=== PATIENT | male | born 1980 | race Asian ===

== ENCOUNTER 2019-02-16 14:54 | Inpatient (IN) | payer OTHER ==
[~2019-02-16] VITALS: Ht 188 cm; Wt 197.0 kg
--- NOTE | 2019-02-16 15:02 | NUR ---
ED Nurse Note: Pt was reported as missing person 2 wks ago and was found by IDT Team that pt is wandering around in the area. cargo service supervisor Satish Martines came to er with the pt, tristin and robert christensen #[id number]. Pt is here for medical claerance.
[2019-02-16 15:25] VITALS: BP 150/89
[2019-02-16 16:06] LABS: ANION GAP 10 mmol/L (5-15); BLOOD UREA NITROGEN 10 mg/dL (7-18); CALCIUM 9.8 MG/DL (8.5-10.1); CARBON DIOXIDE 28 MMOL/L (21-32); CHLORIDE 103 MMOL/L (98-107); SODIUM 140 MMOL/L (136-145)
[2019-02-16 16:09] LABS: BASOPHILS % (AUTO) 0.9 % (0.0-2.0); EOSINOPHILS % (AUTO) 4.5 % (0.0-3.0); HEMATOCRIT 45.2 % (42.0-52.0); LYMPHOCYTES % (AUTO) 19.2 % (20.0-45.0); MEAN CORPUSCULAR VOLUME 92 FL (80-99); MONOCYTES % (AUTO) 7.5 % (1.0-10.0); PLATELET COUNT 333 K/UL (150-450); RED BLOOD COUNT 4.93 M/UL (4.70-6.10); RED CELL DISTRIBUTION WIDTH 10.5 % (11.6-14.8); WHITE BLOOD COUNT 13.4 K/UL (4.8-10.8)
[2019-02-16 16:16] LABS: ALANINE AMINOTRANSFERASE 163 U/L (12-78); ALBUMIN 3.7 G/DL (3.4-5.0); ALBUMIN/GLOBULIN RATIO 0.7 (1.0-2.7); ALKALINE PHOSPHATASE 102 U/L (46-116); ASPARTATE AMINO TRANSFERASE 115 U/L (15-37); BILIRUBIN,TOTAL 2.5 MG/DL (0.2-1.0)
[2019-02-16 16:18] LABS: BILIRUBIN,DIRECT 0.4 MG/DL (0.0-0.3)
[2019-02-16] MEDS ORDERED: NS w/KCl 40mEq 1,000 ML IV SCH (16:45)
--- NOTE | 2019-02-16 17:05 | NUR ---
ED Nurse Note: ivf started per ermd ordered. will continue to monitor. pt is in room, asleep, easily arousable.
--- NOTE | 2019-02-16 17:38 | NUR ---
ED Nurse Note: pt is admitted, report given to claudia garcia.
--- NOTE | 2019-02-16 17:58 | Emergency Room Report ---
History of Present Illness General Chief Complaint: General Complaint Source: Patient, EMS, Law Enforcement Present Illness HPI 38-year-old male presents ED for evaluation. Brought in by EMS and [employer]. Was found wandering the streets. Bystanders called 911. Patient has been missing from his residential for the last 10 days. Director of home stated that patient needs to be brought to hospital for medical clearance and evaluation. Patient states he feels okay. History of schizophrenia. Has not been taking his medications for the last 10 days. Denies SI or HI. Denies hearing voices. No other aggravating relieving factors. Denies any other associated symptoms Allergies: Coded Allergies: No Known Allergies (Unverified , 02/16/19) Patient History Past Medical History: psych hx Past Surgical History: none Pertinent Family History: none Social History: Denies: smoking, alcohol use, drug use Immunizations: UTD Reviewed Nursing Documentation: PMH: Agreed; PSxH: Agreed Review of Systems All Other Systems: negative except mentioned in HPI Physical Exam Vital Signs Date Time Temp Pulse Resp B/P (MAP) Pulse Ox O2 Delivery O2 Flow Rate FiO2 02/16/19 15:00 99.9 71 19 150/89 (109) 97 Room Air Sp02 EP Interpretation: reviewed, normal General Appearance: no apparent distress, alert, GCS 15, non-toxic, obese Head: normocephalic, atraumatic Eyes: bilateral eye normal inspection, bilateral eye PERRL ENT: hearing grossly normal, normal pharynx, no angioedema, normal voice Neck: full range of motion, supple/symm/no masses Respiratory: chest non-tender, lungs clear, normal breath sounds, speaking full sentences Cardiovascular #1: regular rate, rhythm, no edema Cardiovascular #2: 2+ carotid (R), 2+ carotid (L), 2+ radial (R), 2+ radial (L) , 2+ dorsalis pedis (R), 2+ dorsalis pedis (L) Gastrointestinal: normal bowel sounds, non tender, soft, non-distended, no guarding, no rebound Rectal: deferred Genitourinary: normal inspection, no CVA tenderness Musculoskeletal: back normal, gait/station normal, normal range of motion, non- tender Neurologic: alert, oriented x3, responsive, motor strength/tone normal, sensory intact, speech normal Psychiatric: judgement/insight normal, memory normal, mood/affect normal, no suicidal/homicidal ideation Reflexes: 3+ bicep (R), 3+ bicep (L), 3+ tricep (R), 3+ tricep (L), 3+ knee (R) , 3+ knee (L) Lymphatic: no adenopathy Medical Decision Making Diagnostic Impression: Primary Impression: Schizophrenia Qualified Codes: F20.9 - Schizophrenia, unspecified Additional Impressions: Elevated LFTs Hypokalemia ER Course 38-year-old male referred to ED for medical clearance. Missing from his residential for 10 days differentialdehydration, psychosis, EtOH Placed on stretcher. After initial history and physical I ordered labs, IV fluids labs No leukocytosis, hemoglobin/hematocrit stable, potassium 3.0, LFTs elevated. K Repleted. Patient denies any abdominal pain. No overt signs of jaundice. Due to morbid body habitus patient would not be able to get a CT. patient has no abdominal pain director of facility stated that patient would not be accepted until he was cleared medically and evaluated by a psychiatrist. No indication for transfer to psychiatric team. Will be admitted to Dr. Venegas service. psychiatry consult will be obtained. Diagnosisschizophrenia, elevated LFTs, hypokalemia admitted to floor in serious condition Labs Test 02/16/19 15:10 White Blood Count 13.4 K/UL (4.8-10.8) Red Blood Count 4.93 M/UL (4.70-6.10) Hemoglobin 16.0 G/DL (14.2-18.0) Hematocrit 45.2 % (42.0-52.0) Mean Corpuscular Volume 92 FL (80-99) Mean Corpuscular Hemoglobin 32.5 PG (27.0-31.0) Mean Corpuscular Hemoglobin Concent 35.4 G/DL (32.0-36.0) Red Cell Distribution Width 10.5 % (11.6-14.8) Platelet Count 333 K/UL (150-450) Mean Platelet Volume 6.5 FL (6.5-10.1) Neutrophils (%) (Auto) 68.0 % (45.0-75.0) Lymphocytes (%) (Auto) 19.2 % (20.0-45.0) Monocytes (%) (Auto) 7.5 % (1.0-10.0) Eosinophils (%) (Auto) 4.5 % (0.0-3.0) Basophils (%) (Auto) 0.9 % (0.0-2.0) Sodium Level 140 MMOL/L (136-145) Potassium Level 3.0 MMOL/L (3.5-5.1) Chloride Level 103 MMOL/L (98-107) Carbon Dioxide Level 28 MMOL/L (21-32) Anion Gap 10 mmol/L (5-15) Blood Urea Nitrogen 10 mg/dL (7-18) Creatinine 1.0 MG/DL (0.55-1.30) Estimat Glomerular Filtration Rate > 60 mL/min (>60) Glucose Level 114 MG/DL (74-106) Calcium Level 9.8 MG/DL (8.5-10.1) Total Bilirubin 2.5 MG/DL (0.2-1.0) Direct Bilirubin 0.4 MG/DL (0.0-0.3) Aspartate Amino Transf (AST/SGOT) 115 U/L (15-37) Alanine Aminotransferase (ALT/SGPT) 163 U/L (12-78) Alkaline Phosphatase 102 U/L (46-116) Total Protein 8.9 G/DL (6.4-8.2) Albumin 3.7 G/DL (3.4-5.0) Globulin 5.2 g/dL Albumin/Globulin Ratio 0.7 (1.0-2.7) Salicylates Level < 0.2 ug/mL (2.8-20) Urine Opiates Screen Negative (NEGATIVE) Acetaminophen Level < 2 MCG/ML (10-30) Urine Barbiturates Screen Negative (NEGATIVE) Phencyclidine (PCP) Screen Negative (NEGATIVE) Urine Amphetamines Screen Negative (NEGATIVE) Urine Benzodiazepines Screen Negative (NEGATIVE) Urine Cocaine Screen Negative (NEGATIVE) Urine Marijuana (THC) Screen Negative (NEGATIVE) Serum Alcohol < 3 mg/dL Last Vital Signs Date Time Temp Pulse Resp B/P (MAP) Pulse Ox O2 Delivery O2 Flow Rate FiO2 02/16/19 15:25 71 19 Room Air 02/16/19 15:25 99.9 150/89 97 Status: improved Disposition: ADMITTED INPATIENT Condition: Serious Referrals: NON PHYSICIAN (PCP) Ziyad Watts MD Feb 16, 2019 17:58
[2019-02-16] MEDS ORDERED: TRAZODONE HCL150 MG ORAL (18:01)
[2019-02-16] MEDS ORDERED: BENZTROPINE ME0.5 MG PO (18:01)
[2019-02-16] MEDS ORDERED: OXYBUTYNIN CHLOR5 GM MC (18:01)
[2019-02-16] MEDS ORDERED: NIZORAL 2% C1 APPLIC TOPIC (18:01)
[2019-02-16] MEDS ORDERED: NYSTATIN15 G2 TP (18:01)
[2019-02-16] MEDS ORDERED: ABILIFY10 MG ORAL (18:01)
[2019-02-16 18:05] VITALS: BP 135/88
--- NOTE | 2019-02-16 18:05 | NUR ---
ED Nurse Note: pt was transfered to 320 1 with stable vs, all belongings endorsed to claudia garcia.
[2019-02-16 18:23] VITALS: BP 121/68
--- NOTE | 2019-02-16 18:48 | NUR ---
NURSE NOTES: Received pt from ED @1820, report given by Marilyn GRIFFITH. Pt awake, A/O x 2, calm, cooperative, homeless, overweight. VS stable, denies pain, no SOB noted. Redness abd folds/ groin area, scratches on gen body, closed blister on right great toe. IVF infusing. k replaced per order. tolerating diet. pt dont remember home meds. belongings with pt. Swabs pending. received orders. bed in low position, bed alarm on. call light within reach. will continue to monitor.
--- NOTE | 2019-02-16 19:00 | NUR ---
NURSE NOTES:NURSE NOTES Patient received from Merle Lamb Patient denies any pain at this time . nos/s of distress noted . LAC G# 20 ns at 100 cc/ hr infusing well . safety / fall precaution . Call lihnt within reach . Bed in low position . will continue to monitor .
[2019-02-16 20:00] VITALS: BP 128/68
--- NOTE | 2019-02-16 20:45 | NUR ---
NURSE NOTES:Patient Assisted and take shower tonight . And assisted back to bed . safety and fall precautions . Patient instructed to uses call light when needed . Patient verbalized his understanding bed in low position . bed alarm on will continue to monitor.
[2019-02-16] MEDS: TraZODone 100mg tab ORAL SCH (21:00)
--- NOTE | 2019-02-16 21:00 | NUR ---
NURSE NOTES:DR. Quick seen patient. with new orders wound care evaluation protocol right great toe with blister and no open wound . Redness abdominal fold and groin area skin intact. endorsed to incoming nurse .will continue to monitor.
--- NOTE | 2019-02-16 21:00 | NUR ---
NURSE NOTES:Patient refused scheduled Trazodone 100MG PO at 21:00 pm. Explained to patient the risk and benefits . patient states he feels okay. and still refusing Vivek SRINIVASAN Notified and aware.
[2019-02-17] VITALS: BP 131/64
--- NOTE | 2019-02-17 01:30 | History and Physical Report ---
DATE OF ADMISSION: 02/16/2019 REASON FOR ADMISSION: Homelessness. HISTORY OF PRESENT ILLNESS: The patient is a 38-year-old gentleman brought to the emergency room by EMS and [employer] after he was found wandering the streets. Bystanders had called 911. The patient had been missing from his assisted for approximately 10 days. at home stated he needed to be brought to the hospital for medical clearance and evaluation prior to be returned to the facility. The patient does have a history of schizophrenia and has not been taking his medications. PAST MEDICAL HISTORY: Schizophrenia. PAST SURGICAL HISTORY: None. ALLERGIES: No known drug allergies. SOCIAL HISTORY: No tobacco, alcohol, or illicit drug use. REVIEW OF SYSTEMS: NEUROLOGIC: The patient denies headache, change in vision, syncope, or presyncopal episodes. CARDIOVASCULAR: No current chest pain, palpitations, or angina. PULMONARY: No difficulty breathing, productive cough, or sputum. GASTROINTESTINAL/GENITOURINARY: No change in urine or bowel habits. No nausea, vomiting, or diarrhea. ENDOCRINOLOGY: No night sweats, fevers, or chills. MUSCULOSKELETAL: The patient is feeling weak, tired, and fatigued. PHYSICAL EXAMINATION: VITAL SIGNS: Blood pressure 121/68, respiratory rate 20, pulse 78, temperature 97.9, and 95% oxygen saturation on room air. GENERAL: The patient is awake, alert, and not in distress. HEENT: Extraocular muscles intact. No lymphadenopathy noted. Oropharyngeal mucosa is clear and dry. CARDIOVASCULAR: S1, S2. No rubs or gallops. Regular rate. PULMONARY: Clear to auscultation bilaterally. No rales, rhonchi or wheezes. ABDOMINAL: Nondistended and nontender. EXTREMITY: A 1+ edema with blisters noted. LABORATORY DATA: Labs dated 02/16/2019, white cell count 13.4, hemoglobin 16, and platelet count 333,000. Sodium 140, potassium 3, and creatinine 1. AST and ALT are 115 and 163 respectively. Albumin 3.7. Toxicology screen negative. ASSESSMENT AND PLAN: 1. Prior schizophrenia, not being on any medications at this time. The patient is not a harm to himself. He has no suicidal ideation or plans on hurting himself. At this time, Psychiatry has also been called. We will medically clear the patient and transfer him back to his living home. Social Work consult has been placed. 2. Schizophrenia. At this time, the patient is currently stable. Psychiatry has been consulted for further evaluation and management and re-initiation of his medications. 3. DVT prophylaxis with SCDs. Blanco Dumont MD DR: ANA PAULA JOB#: [id number] CC:
[2019-02-17 04:00] VITALS: BP 122/84
--- NOTE | 2019-02-17 05:44 | NUR ---
NURSE NOTES Patient refusing blood works this morning 02/17/19 . Explained the risk and benefits . Patient still refusing Viktor SRINIVASAN notified and aware. will continue to monitor .
--- NOTE | 2019-02-17 07:30 | NUR ---
HAND-OFF: Report given to Charisse Lamb
--- NOTE | 2019-02-17 07:40 | Nephrology Progress Note ---
Assessment/Plan Assessment/Plan: A/P 1. Schizophrenia- DC patient today once cleared by PSY and social work address home situation 2. Dehydration- IVFs 3. DVT prophylaxis with SCDs. 4. Mild LFT elevation- ?? repeat labs pending Subjective Date patient seen: Feb 17, 2019 Time patient seen: 07:38 ROS Limited/Unobtainable: No Allergies: Coded Allergies: No Known Allergies (Unverified , 02/16/19) Subjective Patient calm in no distress Objective Last 24 Hour Vital Signs Date Time Temp Pulse Resp B/P (MAP) Pulse Ox O2 Delivery O2 Flow Rate FiO2 02/17/19 04:00 98.6 111 21 122/84 (97) 02/17/19 00:00 98.5 118 21 131/64 (86) 97 02/16/19 22:00 Room Air 02/16/19 21:00 Room Air 02/16/19 20:00 98.4 125 20 128/68 (88) 97 02/16/19 20:00 02/16/19 18:23 97.9 120 20 121/68 (85) 95 02/16/19 18:05 98.0 78 14 135/88 94 02/16/19 18:05 98.0 88 14 135/88 94 Room Air 02/16/19 15:25 71 19 Room Air 02/16/19 15:25 99.9 71 19 150/89 97 Room Air 02/16/19 15:00 99.9 71 19 150/89 (109) 97 Room Air Intake and Output 02/16/19 02/17/19 19:00 07:00 Intake Total 100 ml 1860 ml Output Total 450 ml Balance 100 ml 1410 ml Intake Oral 760 ml IV Total 100 ml 1100 ml Output Urine Total 450 ml # Voids 1 4 Laboratory Tests 02/16/19 15:10: White Blood Count 13.4H, Red Blood Count 4.93, Hemoglobin 16.0, Hematocrit 45.2 , Mean Corpuscular Volume 92, Mean Corpuscular Hemoglobin 32.5H, Mean Corpuscular Hemoglobin Concent 35.4, Red Cell Distribution Width 10.5L, Platelet Count 333, Mean Platelet Volume 6.5, Neutrophils (%) (Auto) 68.0, Lymphocytes (%) (Auto) 19.2L, Monocytes (%) (Auto) 7.5, Eosinophils (%) (Auto) 4.5H, Basophils (%) (Auto) 0.9, Sodium Level 140, Potassium Level 3.0L, Chloride Level 103, Carbon Dioxide Level 28, Anion Gap 10, Blood Urea Nitrogen 10, Creatinine 1.0, Estimat Glomerular Filtration Rate > 60, Glucose Level 114H , Calcium Level 9.8, Total Bilirubin 2.5H, Direct Bilirubin 0.4H, Aspartate Amino Transf (AST/SGOT) 115H, Alanine Aminotransferase (ALT/SGPT) 163H, Alkaline Phosphatase 102, Total Protein 8.9H, Albumin 3.7, Globulin 5.2, Albumin /Globulin Ratio 0.7L, Salicylates Level < 0.2L, Urine Opiates Screen Negative, Acetaminophen Level < 2L, Urine Barbiturates Screen Negative, Phencyclidine (PCP ) Screen Negative, Urine Amphetamines Screen Negative, Urine Benzodiazepines Screen Negative, Urine Cocaine Screen Negative, Urine Marijuana (THC) Screen Negative, Serum Alcohol < 3 Height (Feet): 6 Height (Inches): 2.00 Weight (Pounds): 441 General Appearance: no apparent distress EENT: normal ENT inspection Neck: normal alignment, supple Cardiovascular: normal rate, regular rhythm Respiratory/Chest: lungs clear, normal breath sounds Abdomen: non tender, soft Edema: 1+ Arm (L), 1+ Arm (R), 1+ Leg (L), 1+ Leg (R), 1+ Pedal (L), 1+ Pedal ( R), 1+ Generalized Blanco Dumont MD Feb 17, 2019 07:40
--- NOTE | 2019-02-17 07:53 | NUR ---
NURSE NOTES: AWAKE/ALERT..NO C/O PAIN. IN NO DISTRESS.
[2019-02-17 08:00] VITALS: BP 149/97
[2019-02-17] MEDS: ARIPiprazole 10mg tab ORAL SCH (08:31)
[2019-02-17] MEDS: Benztropine 1mg tab ORAL SCH (08:32)
--- NOTE | 2019-02-17 09:53 | NUR ---
Social Service Note JHONNY spoke with Landscape Architecture Teacher Satish Martines of [facility] [phone]. Patient is not homeless. Patient has been a resident of facility for 8 years. Patient is not conserved. Since patient has been missing for almost 2 weeks facility requires a chest x-ray and hep panel to be completed. JHONNY informed charge nurse. Once labs and chest x-ray completed information faxed to [phone]. [facility] states they are available to provide transportation back to facility. Patient last wandered from facility a year ago. Will monitor and follow up.
[2019-02-17 12:00] VITALS: BP 129/62
--- NOTE | 2019-02-17 12:55 | Diagnostic Imaging Report ---
Indication: Cough, employee health screening Technique: One view of the chest Comparison: none Findings: Body habitus limits evaluation. The heart is enlarged. No definite acute infiltrates, effusions, or congestion. Impression: Cardiac megaly No acute process
--- NOTE | 2019-02-17 13:00 | NUR ---
NURSE NOTES: INCONTINENT OF BM. ASSISTED IN THE SHOWER. WITH REDNESS ON THE ABDOMINAL FOLDS AND GROIN. SEEN BY WOUND CARE NURSE. APPLIED TRIAD CREAM TO ABD. FOLDS AND GROIN PER WOUND CARE RECOMMENDATION.
--- NOTE | 2019-02-17 14:04 | NUR ---
RADIOLOGY DEPT., CHEST X-RAY DONE.-P.DYE
--- NOTE | 2019-02-17 15:20 | NUR ---
NURSE NOTES: Patient refused blood draw for stat order Hep panel 3 attempt done patient refused and got aggressive on the third attempt per tax compliance representative Christine.
[2019-02-17 16:04] VITALS: BP 105/62
--- NOTE | 2019-02-17 16:36 | NUR ---
*-* INSURANCE *-* ALL CLINICALS AND REVIEWS HAVE BEEN FAXED: FLAK[employer] ALEXANDER FAX ALL CLINICALS TO [phone]
--- NOTE | 2019-02-17 16:56 | NUR ---
Social Service Note SW spoke with Satish [phone] and confirmed facility with pick patient up after 6pm. They will also bring patient a change of clothes. Primary nurse aware.
--- NOTE | 2019-02-17 17:07 | NUR ---
NURSE NOTES: CN spoke to director of social work Isaura regarding patient pickle maker schedule by the facility he used to live after 6pm, CN left message for Dr. Dumont to obtain discharge order will f/u
--- NOTE | 2019-02-17 17:36 | NUR ---
NURSE NOTES: MD notified pt. refused blood draw.
--- NOTE | 2019-02-17 17:40 | NUR ---
CASE MANAGEMENT:REVIEW 38 YR OLD MALE BIBA FROM [employer] [place] SI: ENCEPHALOPATHY. HYPOKALEMIA SCHIZOPHRENIA 99.8 71 19 150/89 97% ON RA WBC+13.4 K-3.0 GLUCOSE+114 IS: K-DUR PO X1 IVF+KCL@100/HR : TO MED/SURG UNIT 02/17/19 DISCHARGE
--- NOTE | 2019-02-17 18:56 | NUR ---
NURSE NOTES: in stable condition. for transfer to the [facility]. K GRIS HIDE TRIMMER WILL HUMAN RESOURCES TEMP PT.
--- NOTE | 2019-02-17 19:18 | NUR ---
HAND-OFF: Report given to Hossein VILLATORO RN.
--- NOTE | 2019-02-17 19:58 | NUR ---
NURSE NOTES: Received report from GLADIS Mqcueen. Patient A&Ox4. On room air, no signs of distress or labored breathing. IV intact, patent, and infusing IV fluids. Bed in lowest position with call light in reach. Patient awaiting discharge to [facility]. Will continue to monitor. Addendum: 02/17/19 at 2107 by Leela Jackson RN Patient is going to [facility] in [place], [place]
[2019-02-17 20:00] VITALS: BP 133/84
[2019-02-17] MEDS: TraZODone 100mg tab ORAL SCH (20:47)
[2019-02-18] VITALS: BP 160/80
[2019-02-18 04:00] VITALS: BP 134/100
--- NOTE | 2019-02-18 07:07 | NUR ---
HAND-OFF: Report given to GLADIS Mcqueen.
--- NOTE | 2019-02-18 07:18 | NUR ---
NURSE NOTES: AWAKE/ALERT. NO C/O PAIN. IN N O DISTRESS.
[2019-02-18 08:00] VITALS: BP 139/97
[2019-02-18] MEDS: ARIPiprazole 10mg tab ORAL SCH (08:05)
[2019-02-18] MEDS: Benztropine 1mg tab ORAL SCH (08:05)
--- NOTE | 2019-02-18 09:18 | Nephrology Progress Note ---
Assessment/Plan Assessment/Plan: A/P 1. Schizophrenia- DC patient today pending 2. Dehydration-DC IVFs 3. DVT prophylaxis with SCDs. 4. Mild LFT elevation- ?? repeat labs pending - patient declined any further labs or evaluation Subjective Date patient seen: Feb 18, 2019 Time patient seen: 09:16 ROS Limited/Unobtainable: No Allergies: Coded Allergies: No Known Allergies (Unverified , 02/16/19) Subjective Patient awaiting DC today to [facility] care Objective Last 24 Hour Vital Signs Date Time Temp Pulse Resp B/P (MAP) Pulse Ox O2 Delivery O2 Flow Rate FiO2 02/18/19 08:39 Room Air 02/18/19 08:00 105 20 139/97 (111) 95 105 02/18/19 04:00 98.0 111 18 134/100 (111) 96 02/18/19 00:00 98.0 103 18 160/80 (106) 95 02/17/19 21:00 Room Air 02/17/19 20:00 98.2 111 18 133/84 (100) 95 02/17/19 16:04 97.2 92 20 105/62 (76) 98 02/17/19 12:00 97.5 118 18 129/62 (84) 97 Intake and Output 02/17/19 02/18/19 19:00 07:00 Intake Total 1750 ml 1150 ml Balance 1750 ml 1150 ml Intake Oral 650 ml IV Total 1100 ml 1150 ml # Voids 2 Height (Feet): 6 Height (Inches): 2.00 Weight (Pounds): 434 General Appearance: no apparent distress EENT: normal ENT inspection Neck: normal alignment, supple Cardiovascular: normal rate, regular rhythm Respiratory/Chest: lungs clear, normal breath sounds Abdomen: non tender, soft Edema: no edema noted Arm (L), no edema noted Arm (R), no edema noted Leg (L), no edema noted Leg (R), no edema noted Pedal (L), no edema noted Pedal (R), no edema noted Generalized Blanco Dumont MD Feb 18, 2019 09:18
--- NOTE | 2019-02-18 09:47 | NUR ---
NURSE NOTES: ASSISTED IN THE SHOWER. TOLERATED. TRIAD CREAM APPLIED TO ABDOMINAL FOLDS AND GROIN REDNESS.
--- NOTE | 2019-02-18 09:49 | NUR ---
NURSE NOTES: CONTACTED [facility] (ADMINISTRATOR0 WHO WILL BE PICKING UP PT. STATES HE'S IN COURT RT NOW AND WILL BULLET SLUGS INSPECTOR PT AT 2PM.
[2019-02-18 12:00] VITALS: BP 127/70
[2019-02-18 12:40] LABS: EOSINOPHILS % (AUTO) 6.3 % (0.0-3.0); HEMATOCRIT 45.4 % (42.0-52.0); HEMOGLOBIN 15.7 G/DL (14.2-18.0); LYMPHOCYTES % (AUTO) 28.5 % (20.0-45.0); MEAN CORPUSCULAR VOLUME 93 FL (80-99); MONOCYTES % (AUTO) 3.3 % (1.0-10.0); NEUTROPHILS % (AUTO) 60.9 % (45.0-75.0); PLATELET COUNT 293 K/UL (150-450); RED BLOOD COUNT 4.88 M/UL (4.70-6.10); WHITE BLOOD COUNT 11.1 K/UL (4.8-10.8)
--- NOTE | 2019-02-18 12:48 | NUR ---
NURSE NOTES: DISCHARGED TO THE [facility] BY YOUNG (DELINQUENCY PREVENTION SOCIAL WORKER. IN STABLE CONDITION. DC INSTRUCTIONS GIVEN.
[2019-02-18 13:23] LABS: ANION GAP 10 mmol/L (5-15); BLOOD UREA NITROGEN 7 mg/dL (7-18); CALCIUM 9.1 MG/DL (8.5-10.1); CARBON DIOXIDE 27 MMOL/L (21-32); CHLORIDE 104 MMOL/L (98-107); CREATININE 0.9 MG/DL (0.55-1.30); POTASSIUM 3.4 MMOL/L (3.5-5.1); SODIUM 141 MMOL/L (136-145)
--- NOTE | 2019-02-18 13:25 | NUR ---
*-* INSURANCE *-* UPDATED CLINICALS AND REVIEWS HAVE BEEN FAXED: [facility] ALEXANDER FAX ALL CLINICALS TO [phone]
[2019-02-18 13:31] LABS: ALANINE AMINOTRANSFERASE 133 U/L (12-78); ALBUMIN 3.2 G/DL (3.4-5.0); ALKALINE PHOSPHATASE 84 U/L (46-116); ASPARTATE AMINO TRANSFERASE 112 U/L (15-37); BILIRUBIN,DIRECT 0.3 MG/DL (0.0-0.3); BILIRUBIN,TOTAL 1.1 MG/DL (0.2-1.0)
--- NOTE | 2019-02-18 20:58 | Discharge Summary ---
Discharge Summary Discharge Summary _ DATE OF ADMISSION: 02/16/2019 DATE OF DISCHARGE: 02/18/2019 DISCHARGED BY: Dr. Dumont REASON FOR ADMISSION: 38 years old male with past medical history of schizophrenia, brought to emergency room by EMS and [employer] after he was found wandering on the streetS. Bystander had called 911. The patient had been missing from his halfway for approximately 10 days. Patient WAS required to be brought to the hospital for medical clearance and evaluation prior to return to the facility. Patient apparently was not taking his psych medications. Laboratory work-up revealed WBC 13.4, stable hemoglobin AND hematocrit. Potassium 3.0, stable renal parameters. AST 115, ALT 163. Urine toxicology screen was negative. Serum alcohol, Tylenol, and salicylate level were all negative. Patient admitted to medical surgical floor. CONSULTANTS: Psychiatrist [facility] COURSE: Patient admitted to medical surgical floor. Patient started on the IV fluids. Psychiatric medication resumed. GI prophylaxis provided. Potassium was replaced. Renal parameters and electrolytes were closely monitored, nephrotoxins were avoided. Potassium 3.4 prior to discharge. LFT were closely monitored: total bilirubin from 2.5 down to 1.1 , ALT from 163 down to 133 , AST from 115 down to 112. Hepatitis panel was negative. No complaints of abdominal pain. Supportive care provided. DVT prophylaxis with SCD provided. Patient declined any further labs or evaluation for elevated LFT. Patient was recommended to follow-up with his primary care provider as outpatient for further follow-up on LFT. Mild leukocytosis trended down to 11.1 , no fevers. No clinical evidence of infection. Psychiatrist seen and evaluated patient. Psychiatric medication regimen optimized. Per psychiatrist. patient was not at imminent danger to self or other. Psychiatrist cleared patient for discharge. Patient was medically stable for discharge to halfway. FINAL DIAGNOSES: Schizophrenia Dehydration Elevated LFT Hypokalemia DISCHARGE MEDICATIONS: See Medication Reconciliation list. DISCHARGE INSTRUCTIONS: Patient was discharged to halfway. Follow-up with primary care provider in 1 week I have been assigned to dictate discharge summary for this account. I was not involved in the patient's management. Debi Torres NP Feb 18, 2019 20:58
--- NOTE | 2019-02-18 21:00 | Consultation ---
DATE OF CONSULTATION: 02/18/2019 CONSULTING PHYSICIAN: Shaan Ramos M.D. HISTORY OF PRESENT ILLNESS: This is a 38-year-old male with a history of schizophrenia, who has been admitted to the hospital after the police brought him to the emergency room. He was found wandering in the streets. The patient was a poor historian. During the evaluation, he replied "I don't know to most of the questions." The patient has poor insight and judgment into his current medical condition. The patient is delusional. The patient has poor insight and judgment. PAST PSYCHIATRIC HISTORY: Schizophrenia. PAST MEDICAL HISTORY: Significant for obesity. MENTAL STATUS EXAMINATION: The patient is alert and oriented times to self and place. Mood is dysphoric. Affect is constricted, congruent with mood. Thought process is concrete. Thought content, no suicidal or homicidal ideation. The patient was able to answer the questions appropriately. No suicidal or homicidal ideation. No delusions. ASSESSMENT: [place] I Schizophrenia. [place] II Deferred. [place] III As above. [place] IV Low. [place] V 20. PLAN: 1. The patient will be started on risperidone 2 mg by mouth nightly. We will discontinue the Abilify. 2. The patient is not an imminent danger to self or others. 3. We discussed the case with Dr. Dumont. Shaan Ramos M.D. DR: ANDRÉS JOB#: [id number] CC:
== END 2019-02-18 12:45 | disposition home or self-care (01) | DRG 750 ==
LOC: EDBD 14:54 → EMR 15:42 → 3E 16:48 → EDBEDREQ 17:26
DX: F20.9 Schizophrenia, unspecified (principal); E86.0 Dehydration; E87.6 Hypokalemia; R79.89 Other specified abnormal findings of blood chemistry
CPT/HCPCS: 36415; 71045; 80048; 80053; 80076; 80307; 80329; 82248; 85025; 86705; 86709; 86803; 87081; 87340; 96365; 99285; J8499